=== PATIENT | male | born 1995 | race Caucasian/White ===

== ENCOUNTER 2021-09-21 22:46 | Emergency (ER) | payer BC ==
[~2021-09-21] VITALS: Ht 180.3 cm; Wt 74.5 kg
[2021-09-21 22:53] VITALS: TEMP 99
[2021-09-21] MEDS ORDERED: ZOFRAN ODT4 MG PO ×3 (23:48→23:57)
[2021-09-22 00:53] VITALS: BP 111/61; PULSE 73
[2021-09-25] MEDS ORDERED: AMITRIPTYLINE H10 M1 PO (11:28)
[2021-09-25] MEDS ORDERED: LUVOX25 MG PO (11:29)
[2021-09-25] MEDS ORDERED: ZOFRAN ODT4 MG PO (11:29)
[2021-09-25] MEDS ORDERED: IMITREX 25MG TA25 MG PO (11:29)
== END 2021-09-22 00:55 | disposition home or self-care (01) ==
LOC: COL.ER 22:46
DX: U07.1 COVID-19 (principal); Z73.0 Burn-out; Z28.310 Unvaccinated for COVID-19
CPT/HCPCS: J0780; J1885; J7030

== ENCOUNTER 2021-09-26 11:56 | Emergency (ER) | payer BC ==
[~2021-09-26] VITALS: Ht 180.3 cm; Wt 75.0 kg
[2021-09-26 12:08] VITALS: TEMP 98.2
[2021-09-26 13:05] LABS: BASO % 0.5 % (0.0-2.0); EOS # 0.2 K/mm3 (0.0-0.7); EOS % 4.1 % (0.0-4.0); GRAN # 2.3 K/mm3 (1.4-6.5); GRAN % 58.8 % (42.2-75.2); HEMATOCRIT 41.6 % (42.0-52.0); HEMOGLOBIN 14.5 g/dl (13.5-18.0); LYMPH # 1.1 K/mm3 (1.2-3.4); LYMPH % 27.5 % (20.0-51.0); MEAN CELL VOLUME 85 fl (80.0-100.0); MEAN CORPUSCULAR HEMOGLOBIN 30 pg (27-31); MEAN CORPUSCULAR HGB CONC 35 g/dl (33.0-37.0); MEAN PLATELET VOLUME 11.2 fl (7.4-10.4); MONO # 0.4 K/mm3 (0.1-0.6); MONO % 9.1 % (1.7-9.3); PLATELET COUNT 158 K/mm3 (130-400); RED BLOOD COUNT 4.92 M/mm3 (4.20-5.60); REDCELL DISTRIBUTION WIDTH-CV 11.9 % (11.5-14.5)
[2021-09-26 13:22] LABS: ALANINE AMINOTRANSFERASE 26 U/L (0-55); ALBUMIN 4.3 gm/dL (3.5-5.0); ALKALINE PHOSPHATASE 43 U/L (40-150); ANION GAP 10 mmol/L (7-16); AST,SGOT 24 U/L (5-34); BILIRUBIN,TOTAL 0.8 mg/dL (0.2-1.2); BLOOD UREA NITROGEN 11 mg/dL (9-21); CALCIUM 9.1 mg/dL (8.4-10.2); CARBON DIOXIDE 27 mmol/L (22-29); CHLORIDE 106 mmol/L (98-107); CREATININE, serum 0.76 mg/dL (0.72-1.25); GLUCOSE 107 mg/dL (70-99); MAGNESIUM 2.1 mg/dL (1.6-2.6); PHOSPHOROUS 3.6 mg/dL (2.3-4.7); POTASSIUM 4.2 mmol/L (3.5-4.5); SODIUM 143 mmol/L (136-145); TOTAL PROTEIN 7.7 gm/dL (6.2-8.1)
[2021-09-26 13:30] LABS: TROPONIN-I < 0.010 ng/mL (0.00-0.033)
[2021-09-26 19:25] VITALS: BP 125/72; PULSE 80
== END 2021-09-26 19:25 | disposition short-term general hospital (02) ==
LOC: COL.ER 11:56
PROVIDERS: Emergency Medicine
DX: R53.1 Weakness (principal); D72.819 Decreased white blood cell count, unspecified; Z28.310 Unvaccinated for COVID-19
CPT/HCPCS: J2060; J7120

== ENCOUNTER → 2021-09-26 | Outpatient (CLI) | payer BC ==
[~2021-09-26] MED LIST: AMITRIPTYLINE H10 M1 PO; IMITREX 25MG TA25 MG PO; LUVOX25 MG PO; ZOFRAN ODT4 MG PO
== END ==
LOC: COL.VAS 08:03
DX: R20.2 Paresthesia of skin (principal); M79.89 Other specified soft tissue disorders; U09.9 Post COVID-19 condition, unspecified